=== PATIENT | male | born 1975 | race Caucasian/White ===

== ENCOUNTER 2021-07-27 22:59 | Emergency (ER) | payer BC, OTHER | END 2021-07-27 23:43 | disposition home or self-care (01) | LOC: VM.ED 22:59 | DX: I10 Essential (primary) hypertension (principal) | CPT/HCPCS: 99283 ==

== ENCOUNTER 2021-08-06 04:55 | Emergency (ER) | payer OTHER ==
[2021-08-06] MEDS ORDERED: Cyclobenzaprine 10 MG Tab PO ONE (05:09)
[2021-08-06] MEDS ORDERED: Ketorolac 30 MG/ML SDV IM ONE (05:10)
[2021-08-06] MEDS ORDERED: Take Home: Cyclobenzaprine 10 MG Tab, 4 Tab Pack PO ONE (05:31)
== END 2021-08-06 05:58 | disposition home or self-care (01) ==
LOC: VM.ED 04:55
DX: I10 Essential (primary) hypertension (principal); M62.838 Other muscle spasm
CPT/HCPCS: 96372; 99283; 99284; A9270-GY; J1885